=== PATIENT | female | born 1960 | race American Indian/Alaskan Native ===

== ENCOUNTER 2016-10-26 06:15 | Emergency (ER) | payer MEDICARE ==
[2016-10-26] MEDS ORDERED: TYLENOL ONE (06:18)
[2016-10-26] MEDS ORDERED: TYLENOL PO ONE (06:22)
[2016-10-26 06:52] LABS: Bilirubin,Urine NEG (Negative); Blood,Urine NEG (Negative); Ketones,Urine NEG (Negative); Leukocyte Esterase,Urine NEG (Negative); Mucus,Urine FEW /HPF; Nitrite,Urine NEG (Negative); Protein,Urine <15 mg/dL mg/dL (Negative); Urobilinogen,Urine < 2.0 mg/dL (<2.0)
[2016-10-26 07:35] LABS: Basophils % (Auto) 0.5 % (0.0-1.8); Eosinophils % (Auto) 2.3 % (0.0-4.3); Hematocrit 40.1 % (30.3-42.9); Hemoglobin 13.1 gm/dl (10.1-14.3); Mean Corpuscular HGB Conc 33 % (30-34); Mean Corpuscular Hemoglobin 26 pg (28-32); Mean Corpuscular Volume 81 fl (79-97); Platelet Count 211 K/mm3 (140-440); Red Blood Count 4.96 M/mm3 (3.65-5.03); Red Cell Distribution Width 15.3 % (13.2-15.2); White Blood Count 7.2 K/mm3 (4.5-11.0)
[2016-10-26 07:54] LABS: Alanine Aminotransferase 16 units/L (7-56); Albumin 4.1 g/dL (3.9-5); Albumin/Globulin Ratio 1.2 %; Alkaline Phosphatase 89 units/L (35-129); Anion Gap 17 mmol/L; BUN/Creatinine Ratio 13.33; Bilirubin,Total 0.3 mg/dL (0.1-1.2); Blood Urea Nitrogen 8 mg/dL (7-17); Calcium 9.4 mg/dL (8.4-10.2); Carbon Dioxide 24 mmol/L (22-30); Chloride 102.6 mmol/L (98-107); Glucose 92 mg/dL (65-100); Lipase 22 units/L (13-60); Potassium 3.6 mmol/L (3.6-5.0); Sodium 140 mmol/L (137-145); Total Protein 7.4 g/dL (6.3-8.2)
--- NOTE | 2016-10-26 09:59 | Emergency Department Report ---
HPI - General Chief Complaint: Abdominal Pain Time Seen by Provider: 10/26/16 09:42 - HPI HPI: Room 19 The patient is a 56-year-old female presenting with a chief complaint of abdominal pain. The patient states for the past 3 weeks his had intermittent left flank and left lower quadrant abdominal pain. The patient describes the pain as cramping in nature. Patient is to nausea but denies vomiting. The patient states last week she had one episode of diarrhea but resolved after drinking "flour water." The patient states yesterday she noticed blood on the tissue and in the stool after having a bowel movement. Patient denies hematuria or dysuria. Patient denies any history of fever. The patient states she spoke to her primary physician yesterday who recommended she come to the ED for evaluation. The patient gives her pain a score of 8/10 Location: [see above] Duration: [see above] Quality: Cramping Severity: 8/10 Modifying factors: [see above] Context: [see above] Mode of transportation: The patient drove herself to the emergency department and there are no visitors present ED Past Medical Hx - Past Medical History Previous Medical History?: Yes Additional medical history: nerve problems. Obesity - Surgical History Past Surgical History?: Yes Additional Surgical History: Chiari malformation; esophageal dilatation x2; left great toe bone spur 2012; Total hysterectomy 2000 - Family History Family history: no significant - Social History Smoking Status: Current Every Day Smoker (1/4 pack per day) Substance Use Type: None - Medications Home Medications: Home Medications Medication Instructions Recorded Confirmed Last Taken Type Fluticasone [Flonase] 1 spray NS QDAY #1 bottle 03/15/16 10/26/16 10/26/16 Rx Azelastine HCl 137 mcg NS QAM 10/26/16 10/26/16 10/26/16 History Hydrocortisone [Anucort-HC SUPPOS] 25 mg RC BID #5 supp.rect 10/26/16 Unknown Rx Ondansetron [Zofran ODT TAB] 8 mg PO Q8HR #20 tab.rapdis 10/26/16 Unknown Rx ED Review of Systems ROS: Stated complaint: LOWER BACK /ABD PAIN Other details as noted in HPI Comment: All other systems reviewed and negative Constitutional: denies: chills, fever Eyes: denies: eye pain, eye discharge, vision change ENT: denies: ear pain, throat pain Respiratory: denies: cough, shortness of breath, wheezing Cardiovascular: denies: chest pain, palpitations Endocrine: no symptoms reported Gastrointestinal: abdominal pain, nausea, diarrhea, hematochezia. denies: vomiting Genitourinary: denies: urgency, dysuria, discharge Musculoskeletal: denies: back pain, joint swelling, arthralgia Skin: denies: rash, lesions Neurological: denies: headache, weakness, paresthesias Psychiatric: denies: anxiety, depression Hematological/Lymphatic: denies: easy bleeding, easy bruising Physical Exam - Physical Exam Vital Signs: Vital Signs 10/26/16 06:18 Temperature 98.1 F Pulse Rate 74 Respiratory 20 Rate Blood Pressure 153/88 [Right] O2 Sat by Pulse 100 Oximetry Physical Exam: GENERAL: The patient is well-developed well-nourished female lying on stretcher not appearing to be in acute distress. [] HEENT: Normocephalic. Atraumatic. Extraocular motions are intact. Patient has moist mucous membranes. NECK: Supple. Trachea midline CHEST/LUNGS: Clear to auscultation. There is no respiratory distress noted. HEART/CARDIOVASCULAR: Regular. There is no tachycardia. There is no gallop rub or murmur. ABDOMEN: Abdomen is soft, with tenderness to palpation in the epigastric, left upper quadrant and left lower quadrant. Patient has normal bowel sounds. There is no abdominal distention. SKIN: There is no rash. There is no edema. There is no diaphoresis. NEURO: The patient is awake, alert, and oriented. The patient is cooperative. The patient has normal speech MUSCULOSKELETAL: There is no evidence of acute injury. RECTAL: Skin tags present. Guaiac-negative ED Course Vital Signs 10/26/16 06:18 Temperature 98.1 F Pulse Rate 74 Respiratory 20 Rate Blood Pressure 153/88 [Right] O2 Sat by Pulse 100 Oximetry ED Medical Decision Making - Lab Data Result diagrams: 10/26/16 07:08 10/26/16 07:08 Laboratory Tests 10/26/16 10/26/16 10/26/16 07:08 07:08 Unknown WBC 7.2 RBC 4.96 Hgb 13.1 Hct 40.1 MCV 81 MCH 26 L MCHC 33 RDW 15.3 H Plt Count 211 Lymph % (Auto) 34.6 [place] % (Auto) 8.1 H Eos % (Auto) 2.3 Baso % (Auto) 0.5 Lymph # 2.5 [place] # 0.6 Eos # 0.2 Baso # 0.0 Seg Neutrophils % 54.5 Seg Neutrophils # 3.9 Sodium 140 Potassium 3.6 Chloride 102.6 Carbon Dioxide 24 Anion Gap 17 BUN 8 Creatinine 0.6 L Estimated GFR > 60 BUN/Creatinine Ratio 13.33 Glucose 92 Calcium 9.4 Total Bilirubin 0.3 AST 21 ALT 16 Alkaline Phosphatase 89 Total Protein 7.4 Albumin 4.1 Albumin/Globulin Ratio 1.2 Lipase 22 Urine Color Straw Urine Turbidity Clear Urine pH 6.0 Ur Specific Cowan 1.008 Urine Protein <15 mg/dl Urine Glucose (UA) Neg Urine Ketones Neg Urine Blood Neg Urine Nitrite Neg Urine Bilirubin Neg Urine Urobilinogen < 2.0 Ur Leukocyte Esterase Neg Urine WBC (Auto) 1.0 Urine RBC (Auto) 1.0 U Epithel Cells (Auto) 1.0 Urine Mucus Few - Radiology Data Radiology results: report reviewed (CT abdomen and pelvis), image reviewed (CT abdomen and pelvis) CT abdomen and pelvis (read by radiologist)-diverticulosis sigmoid colon. No definite evidence of diverticulitis. - Differential Diagnosis diverticulitis, renal colic, UTI, diverticulosis Critical care attestation.: If time is entered above; I have spent that time in minutes in the direct care of this critically ill patient, excluding procedure time. ED Disposition Clinical Impression: Acute abdominal pain, Diverticulosis, Rectal bleeding Disposition: DISCHARGED TO HOME OR SELFCARE Is pt being admited?: No Does the pt Need Aspirin: No Condition: Stable Instructions: Abdominal Pain (ED), Rectal Bleeding (ED) Additional Instructions: Return to the emergency department immediately should you develop worsening symptoms, fever, inability to tolerate food or liquid or any other concerns. Prescriptions: Hydrocortisone [Anucort-HC SUPPOS] 25 mg RC BID #5 supp.rect Ondansetron [Zofran ODT TAB] 8 mg PO Q8HR #20 tab.rapdis Referrals: SHANNAN ROBERTSON MD [Primary Care Provider] - 3-5 Days MICHELLE NAVARRETE MD [Staff Physician] - [facility] (Dr. Navarrete is a frame expander. Please follow up with him for further evaluation) Time of Disposition: 14:00
[2016-10-26] MEDS ORDERED: ZOFRAN IV ONE (12:37)
--- NOTE | 2016-10-26 13:05 | Cat Scan Report ---
Pelvis with IV contrast: History: Left lower quadrant and left flank pain. Findings: Normal liver spleen pancreas and gallbladder. Normal adrenals and kidney parenchyma and bladder. No free intraperitoneal fluid or air. No evidence of adenopathy. Normal aorta, celiac and SMA and JOSE. Diverticulosis sigmoid colon without evidence of diverticulitis. Normal appendix. Gaseous colon with stool in colon. Impression: Diverticulosis sigmoid colon. No definite evidence of diverticulitis.
[2016-10-26] MEDS ORDERED: CATAPRES ONE (13:34)
[2016-10-26] MEDS ORDERED: CATAPRES PO ONE (13:50)
[2016-10-26 14:31] VITALS: BP 173/90
== END 2016-10-26 14:10 | disposition home or self-care (01) ==
LOC: ED 06:15
DX: K57.90 Diverticulosis of intestine, part unspecified, without perforation or abscess without bleeding (principal); K62.5 Hemorrhage of anus and rectum; F17.200 Nicotine dependence, unspecified, uncomplicated; Z90.710 Acquired absence of both cervix and uterus
CPT/HCPCS: 36415; 74177; 80053; 81001; 82271; 83690; 85025; 96374; 99284; J2405; Q9967